=== PATIENT | male | born 1965 | race Caucasian/White ===

== ENCOUNTER 2023-07-04 06:21 | Day surgery (SDC) | payer OTHER ==
[2023-07-03 09:38] VITALS: BMI 37.8
[2023-07-04] MEDS ORDERED: fentaNYL 50 mcg/mL 1 mL Vial ONE (07:07)
[2023-07-04] MEDS ORDERED: Midazolam HCl 2 mg/2 ml Vial ONE (07:07)
[2023-07-04] MEDS ORDERED: Heparin 10,000 UNITS/ 10 ML VIAL ONE (07:08)
[2023-07-04] MEDS ORDERED: Lidocaine 1% (PF) 30 ML VIAL ONE (07:08)
[2023-07-04] MEDS ORDERED: Nitroglycerin 50 MG/250 ML BOT 0 ML ONE (07:08)
[2023-07-04 07:09] LABS: #Eosinphils 0.1 thou/uL (0.0-0.7); #Monocytes 0.6 thou/uL (0.11-0.59); #Neutrophils 4.3 thou/uL (1.40-6.50); %Basophils 0.3 % (0.0-1.0); %Eosinophils 1.9 % (0.0-10.0); %Lymphocytes 30.7 % (21.0-51.0); %Monocytes 7.9 % (0.0-10.0); %Neutrophils 58.9 % (42.0-75.0); Hematocrit 43.7 % (42.0-52.0); Hemoglobin 14.9 g/dL (14.0-18.0); Mean Corpuscular HGB CONC 34.1 g/dL (32.0-36.0); Mean Corpuscular Hemoglobin 29.4 pg (27.0-31.0); Mean Corpuscular Volume 86.2 fl (78.0-98.0); Mean Platelet Volume 10.3 fL (7.4-10.4); Platelet Count 278 10x3/uL (130-400); RBC Distribution Width 13.8 % (11.5-14.5); Red Blood Cell (RBC) Count 5.07 mill/uL (4.70-6.10); White Blood Cell (WBC) Count 7.3 10x3/uL (4.8-10.8)
[2023-07-04 07:31] LABS: ALT (SGPT) 16 U/L (8-55); AST (SGOT) 15 U/L (5-34); Albumin 4.2 g/dL (3.5-5.0); Alkaline Phosphatase 83 U/L (40-110); Anion Gap 14 mmol/L (10-20); BUN (Urea Nitrogen) 18 mg/dL (8.4-25.7); Bilirubin, Direct 0.3 mg/dL (0.1-0.3); Bilirubin, Total 0.8 mg/dL (0.2-1.2); Calc. Creatinine Clearance 159 mL/min (70-130); Calcium 9.4 mg/dL (7.8-10.44); Carbon Dioxide 21 mmol/L (22-29); Cardiac Risk 2.5 (Less than 4.5); Chloride 108 mmol/L (98-107); Cholesterol 156 mg/dl (< 200 Desired); Estimated GFR 100; Globulin 2.8 g/dL (2.4-3.5); Glucose 143 mg/dL (70-105); HDL Cholesterol 62 mg/dL (>60 Neg Risk); INR-International Normal Ratio 0.9; LDL Cholesterol, Calculated 71 mg/dL; PTT 26.5 sec (22.9-36.1); Potassium 3.4 mmol/L (3.5-5.1); Prothrombin Time 12.8 sec (12.0-14.7); Sodium 140 mmol/L (136-145); Triglycerides 115 mg/dL (Less than 150)
== END 2023-07-04 11:57 | disposition home or self-care (01) ==
LOC: SDC 06:21
PROVIDERS: ATTEND Internal Medicine Cardiovascular Disease
PROC: B208YZZ Plain Radiography of Left Internal Mammary Bypass Graft using Other Contrast (ICD-10-PCS; principal; 2023-07-04)
PROC: 4A023N7 Measurement of Cardiac Sampling and Pressure, Left Heart, Percutaneous Approach (ICD-10-PCS; principal; 2023-07-04)
DX: I25.10 Atherosclerotic heart disease of native coronary artery without angina pectoris (principal); I10 Essential (primary) hypertension; R01.1 Cardiac murmur, unspecified; I35.8 Other nonrheumatic aortic valve disorders; R09.89 Other specified symptoms and signs involving the circulatory and respiratory systems; E11.9 Type 2 diabetes mellitus without complications; E78.00 Pure hypercholesterolemia, unspecified; I25.5 Ischemic cardiomyopathy; Z95.5 Presence of coronary angioplasty implant and graft; Z79.899 Other long term (current) drug therapy
CPT/HCPCS: 80053; 80061; 80076; 85025; 85610; 85730; 93005; 93010; 93459; 99152; 99153; 99157; C1769; J1644; J2001; J2250; J3010